=== PATIENT | female | born 1955 | race Caucasian/White ===

== ENCOUNTER 2020-06-26 15:24 | Inpatient (IN) | payer BC ==
--- NOTE | 2020-06-27 09:00 | NUR ---
Pt admitted to medical unit rm 308, ambulates into rm with steady gait. Pt A&O x 4, oriented to room and POC. Pt verbalizes understanding, denies need at this time. Call light in reach.
[2020-06-27 09:23] LABS: BASO # 0.1 (0.0-0.2); BASO % 0.8 % (0.0-2.0); EOS # 0.1 (0.0-0.7); EOS % 1.6 % (0-4.0); GRAN # 5.4 (1.4-6.5); HEMATOCRIT 39.4 % (37.0-47.0); HEMOGLOBIN 12.7 g/dl (12.5-16.0); LYMPH # 1.8 (1.2-3.4); MEAN CELL VOLUME 94 fl (80.0-100.0); MEAN CORPUSCULAR HEMOGLOBIN 30 pg (27.0-31.0); MEAN CORPUSCULAR HGB CONC 32 g/dl (33.0-37.0); MEAN PLATELET VOLUME 8.6 fl (7.4-10.4); MONO # 0.6 (0.1-0.6); MONO % 7.3 % (1.7-9.3); PLATELET COUNT 251 K/mm3 (130-400); RED BLOOD COUNT 4.19 M/mm3 (4.10-5.30); REDCELL DISTRIBUTION WIDTH-CV 12.9 % (11.5-14.5)
[2020-06-27 09:31] LABS: INR 1.1 (0.8-3.0); PROTHROMBIN TIME 12.8 SECONDS (9.7-12.8)
[2020-06-27 09:33] LABS: ALBUMIN 4.3 gm/dL (3.5-5.0); BILIRUBIN,TOTAL 0.1 mg/dL (0.0-1.0); CALCIUM 9.3 mg/dL (8.4-10.2); CREATININE, serum 0.84 (0.52-1.25); MAGNESIUM 2.2 mg/dL (1.6-2.3); POTASSIUM 4.7 mmol/L (3.4-5.0); TOTAL PROTEIN 7.1 gm/dL (6.4-8.2)
[2020-06-27] MEDS ORDERED: PRAVACHOL 20MG20 MG PO (10:27)
[2020-06-27] MEDS ORDERED: PRINIVIL40 MG PO (10:28)
[2020-06-27] MEDS ORDERED: ELIQUIS 5MG PO (10:28)
[2020-06-27] MEDS ORDERED: MOBIC15 MG PO (10:29)
[2020-06-27] MEDS ORDERED: HCTZ 25MG TAB25 MG PO (10:29)
[2020-06-27] MEDS ORDERED: CYMBALTA 30MG30 MG PO (10:29)
[2020-06-27] MEDS ORDERED: GLUCOPHAGE XR500 M1 PO (10:29)
[2020-06-27] MEDS ORDERED: PRIL40 PO (10:30)
[2020-06-27] MEDS ORDERED: AMARYL4 MG PO (10:30)
[2020-06-27] MEDS ORDERED: CORDARONE200 MG/TAB PO (10:31)
[2020-06-27] MEDS ORDERED: OZEMPIC0.25 MG/0. SQ (10:31)
[2020-06-27] MEDS ORDERED: CYANOCOBAL1000 MCG/1 IM (10:32)
[2020-06-27] MEDS ORDERED: TYLENOL 500MG500 MG PO (10:33)
[2020-06-27] MEDS ORDERED: TYLENOL PM EXTR1 TA1 PO (10:33)
[2020-06-27] MEDS ORDERED: WOMEN'S DAILY1 TAB PO (10:34)
[2020-06-27] MEDS ORDERED: CALCIUM CARBON650 M2 PO (10:34)
[2020-06-27] MEDS ORDERED: MASON NATURAL500 MG PO (10:35)
[2020-06-27 11:43] VITALS: BP 140/66; PULSE 55; TEMP 98
--- NOTE | 2020-06-27 16:30 | NUR ---
Tele calls this nurse to report VFib alarm. Pt sitting up in chair, awake and alert. Telemetry leads checked and pt going to keep box out of pocket. No further needs reported. Call light in reach.
[2020-06-27 16:31] VITALS: BP 134/62; PULSE 52; TEMP 98.3
--- NOTE | 2020-06-27 18:44 | NUR ---
Report with MALACHI Keller.
[2020-06-27 19:13] VITALS: BP 135/59; PULSE 52; TEMP 97.8
--- NOTE | 2020-06-27 20:00 | NUR ---
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 Assessment complete. A&Ox3. Denies nausea/shortness of breath/pain. VS stable. TELE showing sinus javier. Plan of care discussed for this shift for HS meds/calling for questions/concerns. Verbalizes understanding. Call light in reach. Will monitor.
[2020-06-27 20:58] VITALS: BP 177/67; PULSE 77; TEMP 97.5
[2020-06-27 21:00] VITALS: BP 132/68
--- NOTE | 2020-06-27 21:40 | NUR ---
Called with c/o headache-rating pain 4/10 on pain scale. States she gets them often after having back surgery. Tylenol given per dr order. VS stable. Call light in reach. Will monitor.
--- NOTE | 2020-06-27 23:00 | NUR ---
Resting eyes closed. No s/s of pain noted.
[2020-06-27 23:36] VITALS: BP 137/60; PULSE 53; TEMP 97.9
[2020-06-28] VITALS (8 sets, daily range): BP systolic 110–128; BP diastolic 44–60; PULSE 48–52; TEMP 97.8–98.1
--- NOTE | 2020-06-28 03:40 | NUR ---
Resting eyes closed. NO s/s of pain noted. Call light in reach. Will monitor.
--- NOTE | 2020-06-28 07:10 | NUR ---
Report with MALACHI Keller. Pt resting in bed with eyes closed, CPAP in place, resp even and unlabored.
[2020-06-28 07:39] LABS: CALCIUM 9.4 mg/dL (8.4-10.2); CREATININE, serum 0.83 (0.52-1.25); MAGNESIUM 2.3 mg/dL (1.6-2.3); POTASSIUM 4.2 mmol/L (3.4-5.0)
[2020-06-28 07:47] LABS: INR 1.2 (0.8-3.0); PROTHROMBIN TIME 12.9 SECONDS (9.7-12.8)
--- NOTE | 2020-06-28 09:18 | NUR ---
patient A&Ox4 - has c/o h/a, 06/21, tylenol given - states these are daily. No other c/o or needs noted this am.
--- NOTE | 2020-06-28 10:36 | NUR ---
Thermostat Repairer met with patient to discuss discharge planning. Patient lives in [place] with her , Chaitanya (ph#[phone]) and sees Dr. Hoskins for primary care. Patient obtains medications from [facility] in [place] with no difficulties. Patient is on Eloquis but reports that she has a $10 co pay card which makes it more affordable. Patient uses a CPAP at home and reports she also uses a cane as needed. Patient is independent with ADLS and plans to return home upon discharge. Patient reports she has completed DPOA-HC and that it designates her son, Monico (ph#[phone]) but SW did not locate copy in EMR. SW contacted patient's , Chaitanya and left a message. SW will continue to follow as needed.
--- NOTE | 2020-06-28 18:41 | NUR ---
PATIENT HAD QUIET DAY; INDEPENDANT IN ROOM. N/C OR NEEDS AT CURRENT TIME.
--- NOTE | 2020-06-28 21:00 | NUR ---
Patient assessed at this time. Alert and oriented x 4, and able to make needs known. Denies having pain and discomfort at this time. Peripheral INT to left AC flushed. Site without redness, warmth, swelling, and pain. Denies having SOB and dyspnea. LS CTA. Respirations even and unlabored. HRR. Telemetry in place. Capillary refill less than 3 seconds. Non-tenting skin turgor. BSAx4. Abdomen soft and non-tender. BSAx4. Abdomen soft and non-tender. No edema. Given education paperwork on Sotalol. Voices no further questions, needs, or concerns at this time. Resting in bed with call light within reach.
[2020-06-29 04:12] VITALS: BP 125/67; PULSE 49; TEMP 97.2
--- NOTE | 2020-06-29 05:42 | NUR ---
Patient has been resting in bed with call light within reach. CPAP on. Has denied having pain and discomfort. EKG this morning shows sinus javier with HR 49, QTC 457. Voices no questions, needs, or concerns at this time.
[2020-06-29 06:56] LABS: INR 1.1 (0.8-3.0); PROTHROMBIN TIME 12.3 SECONDS (9.7-12.8)
[2020-06-29 07:36] VITALS: BP 119/52; PULSE 50; TEMP 98.3
[2020-06-29 07:51] LABS: CALCIUM 9.3 mg/dL (8.4-10.2); CREATININE, serum 0.88 (0.52-1.25); MAGNESIUM 2.2 mg/dL (1.6-2.3); POTASSIUM 4.3 mmol/L (3.4-5.0)
--- NOTE | 2020-06-29 08:14 | NUR ---
BEDISIDE REPORT RECIEVED FROM MALACHI LOPEZ. PATIENT SITTING IN CHAIR EATING BREAKFAST AT THIS TIME. DENIES ANY PAIN OR DISCOMFORT. DENIES ANY FURTHER NEEDS. WILL CONTINUE TO MONITOR. CALL LIGHT WITHIN REACH.
[2020-06-29] MEDS ORDERED: BETAPACE 80MG80 MG PO (10:18)
[2020-06-29] MEDS ORDERED: PRINIVIL20 MG PO (10:20)
[2020-06-29] MEDS ORDERED: HCTZ12.5TAB PO (10:21)
--- NOTE | 2020-06-29 11:50 | NUR ---
PATIENT FIT FOR DISCHARGE. DOES NOT HAVE ANY FURTHER QUESTIONS OR NEEDS. ESCORTED FROM BUILDING BY VIA [employer] STAFF.
== END 2020-06-29 12:02 | disposition home or self-care (01) | DRG 310 ==
LOC: MEDICAL 06-27 08:24
PROVIDERS: ADMIT Internal Medicine Cardiovascular Disease
DX: I48.0 Paroxysmal atrial fibrillation (principal); I10 Essential (primary) hypertension; G47.33 Obstructive sleep apnea (adult) (pediatric); E78.5 Hyperlipidemia, unspecified; E11.9 Type 2 diabetes mellitus without complications; Z88.2 Allergy status to sulfonamides